=== PATIENT | female | born 1970 | race Caucasian/White ===

== ENCOUNTER → 2020-08-26 | Outpatient (CLI) | payer MEDICARE, OTHER | LOC: KOH-I 15:15 | DX: J32.9 Chronic sinusitis, unspecified (principal); J32.1 Chronic frontal sinusitis; J32.2 Chronic ethmoidal sinusitis; J34.89 Other specified disorders of nose and nasal sinuses | CPT/HCPCS: 70486 ==

== ENCOUNTER → 2020-12-11 | Outpatient (CLI) | payer MEDICARE ==
[~2020-12-11] MED LIST: BUPROPION XL150 MG PO; IBU800 MG PO; PATADAY2.5 ML EYEBOTH; RESTASIS 0.05%1 EACH OD; SINGULAIR10 MG PO; TIZANIDINE HCL4 MG PO; VITAMIN D21250 MCG PO
== END ==
LOC: OPSV2 12-10 11:00
DX: Z01.810 Encounter for preprocedural cardiovascular examination (principal)
CPT/HCPCS: 93005

== ENCOUNTER → 2020-12-13 | Day surgery (SDC) | payer MEDICARE | END | disposition home or self-care (01) | LOC: OR 06:21 | DX: J32.2 Chronic ethmoidal sinusitis (principal); J32.1 Chronic frontal sinusitis; J32.0 Chronic maxillary sinusitis; J34.3 Hypertrophy of nasal turbinates; E78.5 Hyperlipidemia, unspecified; M79.7 Fibromyalgia; M19.90 Unspecified osteoarthritis, unspecified site; F41.9 Anxiety disorder, unspecified; F17.210 Nicotine dependence, cigarettes, uncomplicated; Z88.8 Allergy status to other drugs, medicaments and biological substances; Z79.1 Long term (current) use of non-steroidal anti-inflammatories (NSAID); Z79.899 Other long term (current) drug therapy | CPT/HCPCS: C1726; J0171; J0690; J1100; J1170; J2001; J2250; J2405; J2704; J2710; J3010; J7030; J7120 ==